=== PATIENT | female | born 1990 | race Two or more races ===

== ENCOUNTER 2017-08-20 07:05 | Outpatient (CLI) | payer OTHER ==
[~2017-08-20] VITALS: Ht 162.6 cm; Wt 96.6 kg
[2017-08-20] MEDS ORDERED: PREN-127 PO (07:13)
--- NOTE | 2017-08-20 07:19 | ER Report ---
History and Physical Time Seen By MD: 07:14 Hx. of Stated Complaint: PT PRESENTS WITH R FLANK PAIN ON . IT WENT AWAY AND RETURNED TODAY, NOT RELIEVED BY TYLENOL. PT IS 31 WEEKS HPI/ROS CHIEF COMPLAINT: Right-sided back and flank pain HISTORY OF PRESENT ILLNESS: Patient is a 26-year-old female who is a at 31 weeks gestation. She states she's been having right-sided flank pain since Monday. The pain is worse with movement. There is some associated nausea. She denies any dysuria. She denies any vaginal bleeding or leakage of fluid. She denies any lower pelvic or abdominal cramping. She does report that she is feeling the baby move normally. Patient states that the onset of the pain she did take Tylenol with relief of her symptoms however over the course of the last 24 hours the pain seems to be worse with movement and does not respond to Tylenol. For this reason she comes to the emergency department for further evaluation. Patient denies any prior history of kidney stone or pyelonephritis. REVIEW OF SYSTEMS: Respiratory: No cough, no dyspnea. Cardiovascular: No chest pain, no palpitations. Gastrointestinal: No vomiting, no abdominal pain. Right-sided flank pain, nausea Musculoskeletal: Right-sided flank pain Allergies: Coded Allergies: No Known Drug Allergies (Unverified , 08/20/17) Home Meds Active Scripts Oxycodone Hcl/Acetaminophen (PERCOCET 5-325 MG TABLET) 1 Each Tablet, 1-2 EACH PO Q6H for PAIN, #20 TAB 0 Refills Prov:MELONIE GRIMALDO MD 08/20/17 Reported Medications Acetaminophen (TYLENOL) 325 Mg Tablet, 325 MG PO, TAB 08/20/17 Vits W-Ca,Fe,Fa(<1MG) ( VITAMINS) 1 Each Tablet, 1 EACH PO DAILY, TAB 08/20/17 Past Medical/Surgical History 31 weeks Constitutional Vital Sign - Last 24 Hours 08/20/17 08/20/17 08/20/17 08/20/17 07:08 07:08 07:15 07:30 Temp 98.3 Pulse 123 Resp 20 B/P (MAP) 123/80 (94) 123/80 110/76 (87) 121/79 (93) Pulse Ox 91 O2 Delivery Room Air 08/20/17 07:35 Pulse Ox 93 Physical Exam General Appearance: The patient is alert, has no immediate need for airway protection and no current signs of toxicity. Eyes: Pupils equal and round no injection. Respiratory: Chest is non tender, lungs are clear to auscultation. Cardiac: regular rate and rhythm Gastrointestinal: Gravid, nontender abdomen. Musculoskeletal: Neck: Neck is supple and non tender. Extremities have full range of motion and are non tender. Skin: No rashes or lesions. Medical Decision Making Data Points Result Diagram: 08/20/17 0713 08/20/17 0713 Laboratory Hematology Test 08/20/17 07:13 08/20/17 07:36 Red Blood Count 4.17 M/uL (4.17-5.56) Mean Corpuscular Volume 81.6 fL (80.0-96.0) Mean Corpuscular Hemoglobin 28.2 pg (26.0-33.0) Mean Corpuscular Hemoglobin Concent 34.6 g/dL (32.0-36.0) Red Cell Distribution Width 14.1 % (11.5-14.5) Mean Platelet Volume 10.4 fL (7.2-11.1) Neutrophils (%) (Auto) 78.4 % (39.4-72.5) Lymphocytes (%) (Auto) 13.3 % (17.6-49.6) Monocytes (%) (Auto) 7.4 % (4.1-12.4) Eosinophils (%) (Auto) 0.4 % (0.4-6.7) Basophils (%) (Auto) 0.5 % (0.3-1.4) Nucleated RBC Relative Count (auto) 0.0 /100WBC Neutrophils # (Auto) 8.4 K/uL (2.0-7.4) Lymphocytes # (Auto) 1.4 K/uL (1.3-3.6) Monocytes # (Auto) 0.8 K/uL (0.3-1.0) Eosinophils # (Auto) 0.0 K/uL (0.0-0.5) Basophils # (Auto) 0.1 K/uL (0.0-0.1) Nucleated RBC Absolute Count (auto) 0.00 K/uL Sodium Level 136 mmol/L (137-145) Potassium Level 3.9 mmol/L (3.5-5.0) Chloride Level 104 mmol/L (98-107) Carbon Dioxide Level 20 mmol/L (22-31) Blood Urea Nitrogen 4 mg/dl (7-18) Creatinine 0.60 mg/dl (0.52-1.04) Glomerular Filtration Rate Calc > 60.0 Random Glucose 98 mg/dl (75-110) Calcium Level 9.4 mg/dl (8.4-10.2) Total Bilirubin 0.7 mg/dl (0.2-1.3) Aspartate Amino Transf (AST/SGOT) 24 U/L (0-35) Alanine Aminotransferase (ALT/SGPT) 20 U/L (0-56) Alkaline Phosphatase 120 U/L (0-126) Total Protein 7.2 gm/dl (6.3-8.2) Albumin 3.6 g/dl (3.5-5.0) Urine Color Yellow Urine Clarity Slightly-cloudy Urine pH 8.0 pH (4.8-9.5) Urine Specific [place] 1.012 Urine Protein Negative mg/dL (NEGATIVE) Urine Glucose (UA) Negative mg/dL (NEGATIVE) Urine Ketones Negative mg/dL (NEGATIVE) Urine Blood Moderate (NEGATIVE) Urine Nitrite Negative (NEGATIVE) Urine Bilirubin Negative (NEGATIVE) Urine Urobilinogen 2.0 mg/dL (0.2-1.9) Urine Leukocyte Esterase Small (NEGATIVE) Urine RBC 10 /HPF (0-2/HPF) Urine WBC 128 /HPF (0-5/HPF) Urine Squamous Epithelial Cells Many /LPF (</=FEW) Urine Transitional Epithelial Cells Moderate /LPF (NONE-FEW) Urine Bacteria Moderate /HPF (NONE-FEW) Urine White Blood Cell Casts Few /LPF (NONE) Urine Mucus None /HPF (NONE-FEW) Urine Opiates Screen Negative Urine Barbiturates Screen Negative Ur Tricyclic Antidepressants Screen Negative Urine Phencyclidine Screen Negative Urine Amphetamines Screen Negative Urine Benzodiazepines Screen Negative Urine Cocaine Screen Negative Urine Cannabinoids Screen Negative Chemistry Test 08/20/17 07:13 08/20/17 07:36 White Blood Count 10.8 k/uL (4.5-11.0) Red Blood Count 4.17 M/uL (4.17-5.56) Hemoglobin 11.8 g/dL (12.0-16.0) Hematocrit 34.0 % (34.0-47.0) Mean Corpuscular Volume 81.6 fL (80.0-96.0) Mean Corpuscular Hemoglobin 28.2 pg (26.0-33.0) Mean Corpuscular Hemoglobin Concent 34.6 g/dL (32.0-36.0) Red Cell Distribution Width 14.1 % (11.5-14.5) Platelet Count 168 K/uL (150-450) Mean Platelet Volume 10.4 fL (7.2-11.1) Neutrophils (%) (Auto) 78.4 % (39.4-72.5) Lymphocytes (%) (Auto) 13.3 % (17.6-49.6) Monocytes (%) (Auto) 7.4 % (4.1-12.4) Eosinophils (%) (Auto) 0.4 % (0.4-6.7) Basophils (%) (Auto) 0.5 % (0.3-1.4) Nucleated RBC Relative Count (auto) 0.0 /100WBC Neutrophils # (Auto) 8.4 K/uL (2.0-7.4) Lymphocytes # (Auto) 1.4 K/uL (1.3-3.6) Monocytes # (Auto) 0.8 K/uL (0.3-1.0) Eosinophils # (Auto) 0.0 K/uL (0.0-0.5) Basophils # (Auto) 0.1 K/uL (0.0-0.1) Nucleated RBC Absolute Count (auto) 0.00 K/uL Glomerular Filtration Rate Calc > 60.0 Calcium Level 9.4 mg/dl (8.4-10.2) Total Bilirubin 0.7 mg/dl (0.2-1.3) Aspartate Amino Transf (AST/SGOT) 24 U/L (0-35) Alanine Aminotransferase (ALT/SGPT) 20 U/L (0-56) Alkaline Phosphatase 120 U/L (0-126) Total Protein 7.2 gm/dl (6.3-8.2) Albumin 3.6 g/dl (3.5-5.0) Urine Color Yellow Urine Clarity Slightly-cloudy Urine pH 8.0 pH (4.8-9.5) Urine Specific [place] 1.012 Urine Protein Negative mg/dL (NEGATIVE) Urine Glucose (UA) Negative mg/dL (NEGATIVE) Urine Ketones Negative mg/dL (NEGATIVE) Urine Blood Moderate (NEGATIVE) Urine Nitrite Negative (NEGATIVE) Urine Bilirubin Negative (NEGATIVE) Urine Urobilinogen 2.0 mg/dL (0.2-1.9) Urine Leukocyte Esterase Small (NEGATIVE) Urine RBC 10 /HPF (0-2/HPF) Urine WBC 128 /HPF (0-5/HPF) Urine Squamous Epithelial Cells Many /LPF (</=FEW) Urine Transitional Epithelial Cells Moderate /LPF (NONE-FEW) Urine Bacteria Moderate /HPF (NONE-FEW) Urine White Blood Cell Casts Few /LPF (NONE) Urine Mucus None /HPF (NONE-FEW) Urine Opiates Screen Negative Urine Barbiturates Screen Negative Ur Tricyclic Antidepressants Screen Negative Urine Phencyclidine Screen Negative Urine Amphetamines Screen Negative Urine Benzodiazepines Screen Negative Urine Cocaine Screen Negative Urine Cannabinoids Screen Negative Toxicology Test 08/20/17 07:36 Urine Opiates Screen Negative Urine Barbiturates Screen Negative Ur Tricyclic Antidepressants Screen Negative Urine Phencyclidine Screen Negative Urine Amphetamines Screen Negative Urine Benzodiazepines Screen Negative Urine Cocaine Screen Negative Urine Cannabinoids Screen Negative Urinalysis Test 08/20/17 07:36 Urine Color Yellow Urine Clarity Slightly-cloudy Urine pH 8.0 pH (4.8-9.5) Urine Specific [place] 1.012 Urine Protein Negative mg/dL (NEGATIVE) Urine Glucose (UA) Negative mg/dL (NEGATIVE) Urine Ketones Negative mg/dL (NEGATIVE) Urine Blood Moderate (NEGATIVE) Urine Nitrite Negative (NEGATIVE) Urine Bilirubin Negative (NEGATIVE) Urine Urobilinogen 2.0 mg/dL (0.2-1.9) Urine Leukocyte Esterase Small (NEGATIVE) Urine RBC 10 /HPF (0-2/HPF) Urine WBC 128 /HPF (0-5/HPF) Urine Squamous Epithelial Cells Many /LPF (</=FEW) Urine Transitional Epithelial Cells Moderate /LPF (NONE-FEW) Urine Bacteria Moderate /HPF (NONE-FEW) Urine White Blood Cell Casts Few /LPF (NONE) Urine Mucus None /HPF (NONE-FEW) ED Course/Re-evaluation ED Course 08/20/2017 7:36:46 am a bedside ultrasound was performed which did not reveal any significant hydronephrosis by my exam. Plan at this time will be to place an IV we will give 4 mg of IV morphine for pain 4 mg of IV Zofran for nausea. We 'll check CBC, comprehensive metabolic panel urinalysis and urine culture. Because the patient is 31 weeks we will sent to the OB floor for monitoring, if patient is cleared by OB and needs further evaluation and treatment for her right-sided flank pain we can see her back in the emergency department. Decision to Disposition Date: August 20, 2017 Decision to Disposition Time: 07:38 Depart Departure Latest Vital Signs Vital Signs Date Time Temp Pulse Resp B/P (MAP) Pulse Ox O2 Delivery O2 Flow Rate FiO2 08/20/17 07:35 93 08/20/17 07:30 121/79 (93) 08/20/17 07:08 98.3 123 20 Room Air Impression: Primary Impression: Right flank pain Condition: Improved Disposition: HOME OR SELF-CARE (to OB floor for monitoring) New Scripts Oxycodone Hcl/Acetaminophen (PERCOCET 5-325 MG TABLET) 1 Each Tablet 1-2 EACH PO Q6H for PAIN, #20 TAB 0 Refills Prov: MELONIE GRIMALDO MD 08/20/17 Departure Forms: ER Transition Record, Medications Reconciliation, Patient Portal Information Patient Instructions: Flank Pain (ED) MELONIE GRIMALDO MD August 20, 2017 07:19
[2017-08-20] MEDS ORDERED: MORPHINE 4 MG/ML SDV IVP ONE (07:20)
[2017-08-20] MEDS ORDERED: ONDANSETRON 4 MG/2 ML VIAL IVP ONE (07:20)
[2017-08-20 07:31] LABS: PLATELET COUNT, AUTOMATED 168 K/uL (150-450)
[2017-08-20] MEDS ORDERED: ACET-1966 PO (08:00)
[2017-08-20 08:30] VITALS: BP 124/58; Ht 162.6 cm; Wt 96.6 kg
--- NOTE | 2017-08-20 08:43 | History & Physical ---
History of Present Illness EDC per LMP: Oct 22, 2017 Estimated Gestational Age: 30.6 Chief Complaint Right flank pain History of Present Illness 26yo at 30w6d presented to ED for right sided flank pain. She reports this started 5 days ago, but has significantly worsened last night. She reports it is a constant pain in the right sided flank that comes in waves of severity. She denies nausea, fevers or chills. However, she did feel "hot" last night. She denies vaginal bleeding or blood in the urine. No dysuria. + FM. No preeclampsia symptoms. PNC by W. PNR not available. History Obstetrical History: Hx 2 SVDs Hx 1 SAB Hx 2 EABs Past Medical History: See ED notes Allergies: Coded Allergies: No Known Drug Allergies (Unverified , 08/20/17) Med Rec Home Meds Reported Medications Acetaminophen (TYLENOL) 325 Mg Tablet, 325 MG PO, TAB 08/20/17 Vits W-Ca,Fe,Fa(<1MG) ( VITAMINS) 1 Each Tablet, 1 EACH PO DAILY, TAB 08/20/17 Review of Systems Constitutional: No Fever, No Chills Neurological: No Dizziness Cardiovascular: No Chest Pain Respiratory: No Shortness of Breath, No Cough Gastrointestinal: No Nausea, No Vomiting, Abdominal Pain Genitourinary: No Dysuria Musculoskeletal: No Pain Psychiatric: No Depression, No Anxiety Exam General Exam Vital Signs Vital Signs Date Time Temp Pulse Resp B/P (MAP) Pulse Ox O2 Delivery O2 Flow Rate FiO2 08/20/17 07:35 93 08/20/17 07:30 121/79 (93) 08/20/17 07:08 98.3 123 20 Room Air General Apperance: Alert/Awake/No Acute Distress Neuro: No Gross deficits Eyes: Normal Extraocular Movement & Vison Cardiovascular: Regular Rate and Rhythm Respiratory: Clear to Auscultation Abdomen: Gravid - Non-Tender : CVA Tenderness (Right sided along entire flank) Extremities: No Cyanosis,Clubbing or Edema Integumentary: Skin Intact without Lesions or Rash Psychological: Alert & Oriented X3, Appropriate Mood & Affect Fetus Feeling Movement?: Yes FHT Category: I Medical Decision Making Data Points Result Diagram: 08/20/17 0713 08/20/17 0713 Pre-Admit Course Medical Record Review: Yes VTE Prophylasis: Adult Deep Vein Thrombosis/Pulmonary: No Pharmacological Contraindicati: Pt at Low Risk for VTE Mechanical Contraindications: Pt at Low Risk for VTE Assessment and Plan Problems: (1) Right flank pain Status: Acute Assessment & Plan: 26yo at 30w6d presents with right sided flank pain. Her exam and symptoms are consistent with ureteral stones. There is no indication of pyelonephritis a this time. Will push IVF and adjust oral pain medications. Await renal ultrasound results. Will likely discharge once pain is tolerable with medication and follow up next week at [facility]. (2) 30 weeks gestation of MARLA ARCOS MD August 20, 2017 08:43
[2017-08-20] MEDS ORDERED: NS(*) 0.9% 1000 ML BAG 1,000 ML IV ONE ×2 (08:45)
[2017-08-20] MEDS ORDERED: OXYC-865 PO (12:25)
[2017-08-20] MEDS ORDERED: oxyCODONE/ACETAMIN 5/325MG TH 2 TAB/BOTTLE PO ONE (12:35)
== END 2017-08-20 12:41 | disposition home or self-care (01) ==
LOC: ER 07:21 → OB 07:55 → L&D 07:55 → OB 07:55 → UNDOADMOB 07:55 → L&D 12:41 → UNDODISOB 12:41 → EDSTATUS 15:04
PROVIDERS: ATTEND Emergency Medicine
DX: O26.893 Other specified pregnancy related conditions, third trimester (principal); Z3A.30 30 weeks gestation of pregnancy; M54.9 Dorsalgia, unspecified
CPT/HCPCS: 80305; 81001; 85025; 87088; 87186; 99213; 99284; J2270; J2405; J7030; 82040; 82247; 82310; 82374; 82435; 82565; 82947; 84075; 84132; 84155; 84295; 84450; 84460; 84520; G0378

== ENCOUNTER → 2017-08-23 | Outpatient (REF) | payer OTHER ==
[2017-08-20 08:30] VITALS: BMI 36.6
[~2017-08-23] MED LIST: ACET-1966 PO; OXYC-865 PO; PREN-127 PO
== END ==
LOC: ZZSENDIN 18:25
PROVIDERS: ATTEND Urology
DX: N39.0 Urinary tract infection, site not specified (principal)
CPT/HCPCS: 81001; 87088

== ENCOUNTER → 2017-08-28 | Outpatient (CLI) | payer OTHER ==
[2017-08-20 08:30] VITALS: BMI 36.6
--- NOTE | 2017-08-28 14:49 | RADIOLOGY IMAGING REPORT ---
FACILITY: [facility] PATIENT NAME: Betzy Joseph : 1990 MR: [id number] V: [id number] EXAM DATE: ORDERING PHYSICIAN: SIERRA JUÁREZ TECHNOLOGIST: Location: [facility] [place] Patient: Betzy Joseph : 1990 Visit/Account:[id number] Date of Sevice: 08/28/2017 KIDNEYS ultrasound EXAMINATION: Renal ultrasound. History: Right flank pain, UTIs, 32 weeks COMPARISON STUDIES: FINDINGS: Kidneys: Right kidney- 11.9 x 5.2 x 6.6 cm Left kidney- 11.5 x 5 x 6.4 cm cm Uniform and symmetric blood flow in each kidney by Doppler ultrasound. Hydronephrosis: Mild bilateral hydronephrosis Bladder: Prevoid volume 68.36 mL. Postvoid residual 6 mL. Bilateral ureteral jets are present. Abdominal aorta and IVC: Aorta and IVC are patent by Doppler ultrasound. Incidentally noted is a fetus in cephalic presentation which is incompletely imaged IMPRESSION: Mild bilateral hydronephrosis Report Dictated By: Radha Mcconnell MD at 08/28/2017 2:42 PM Report E-Signed By: Rahda Mcconnell MD at 08/28/2017 2:45 PM WSN:CAITIE
== END ==
LOC: US 06:56
PROVIDERS: ATTEND Urology
DX: N13.30 Unspecified hydronephrosis (principal); Z3A.32 32 weeks gestation of pregnancy
CPT/HCPCS: 76705

== ENCOUNTER 2017-09-21 22:25 | Observation (INO) | payer OTHER, MEDICAID ==
[~2017-09-21] VITALS: Ht 162.6 cm; Wt 98.9 kg
[2017-09-21] MEDS ORDERED: LR(*) 1000 ML BAG 1,000 ML IV PRN (22:30)
[2017-09-21 23:16] VITALS: BP 118/71; Ht 162.6 cm; Wt 98.9 kg
== END 2017-09-21 23:09 | disposition home or self-care (01) ==
LOC: OB 22:25
PROVIDERS: ADMIT Obstetrics & Gynecology; ATTEND Obstetrics & Gynecology
DX: O36.8130 Decreased fetal movements, third trimester, not applicable or unspecified (principal); Z3A.35 35 weeks gestation of pregnancy
CPT/HCPCS: 59025; G0378; G0379

== ENCOUNTER 2017-10-01 20:28 | Outpatient (CLI) | payer MEDICAID ==
[2017-09-21 23:16] VITALS: BMI 37.4
[2017-10-01] MEDS ORDERED: LR(*) 1000 ML BAG 1,000 ML IV PRN (20:30)
[2017-10-01] MEDS ORDERED: ACETAMINOPHEN 500 MG TAB PO ONE ×2 (21:30→21:55)
[2017-10-01 21:32] LABS: PLATELET COUNT, AUTOMATED 162 K/uL (150-450)
--- NOTE | 2017-10-01 22:04 | History & Physical ---
History of Present Illness Chief Complaint Left abdominal pain History of Present Illness 27yo at 37w0d presents to L&D for left sided abdominal pain. She states this started abruptly at 1900 tonight. It is a 7 out of 10 on the scale. She reports it is a sharp and achy sensation that feels like she fell on her stomach , but she did not. She reports it is on the entire left side and cannot further define if it is in the lower/upper/back/front. This appears to be very ill-defined. She has some discomfort with laying still, but the pain worsens when she moves. She was seen for right flank pain in the ED on 08/20/17 and describes this as a completely different pain. She has history of UTI, but no urinary symptoms, fevers/chills. No nausea/vomiting. She feels some contractions but not strong. She has bad back pain in and says she usually has Percocet at home. However, she reports she took her last Percocet 4 days ago for this pain. She still has that pain today, but it is generally the same as it usually is. She reports FM. No vaginal bleeding. No loss of fluid. No preeclampsia symptoms. She does have severe constipation in , but states this does not feel like bowel pains to her. History Patient's Blood Type: A Positive Rubella Status: Immune Group B Strep Screen: Negative Allergies: Coded Allergies: No Known Drug Allergies (Unverified , 08/20/17) Social History: Denies current smoking or alcohol. Denies drug use. Med Rec Home Meds Active Scripts Oxycodone Hcl/Acetaminophen (PERCOCET 5-325 MG TABLET) 1 Each Tablet, 1-2 EACH PO Q6H for PAIN, #20 TAB 0 Refills Prov:MELONIE GRIMALDO MD 08/20/17 Reported Medications Vits W-Ca,Fe,Fa(<1MG) ( VITAMINS) 1 Each Tablet, 1 EACH PO DAILY, TAB 08/20/17 Discontinued Reported Medications Acetaminophen (TYLENOL) 325 Mg Tablet, 325 MG PO, TAB 08/20/17 Review of Systems Constitutional: No Fever, No Chills Eyes: No Vision Change Cardiovascular: No Chest Pain Respiratory: No Shortness of Breath, No Cough, No Wheezing Gastrointestinal: No Nausea, No Vomiting, No Diarrhea, Constipation, Abdominal Pain Genitourinary: No Dysuria Exam General Exam Vital Signs VS reviewed: Afebrile, normotensive General Apperance: Alert/Awake/No Acute Distress Neuro: No Gross deficits Eyes: Normal Extraocular Movement & Vison Cardiovascular: Regular Rate and Rhythm Respiratory: No Respiratory Distress, Clear to Auscultation Abdomen: Gravid - Tender (No rebound or guarding; describes tenderness everywhere that I palpate, but does not appear in pain) Extremities: No Cyanosis,Clubbing or Edema, No Tender Calves, No Clonus Integumentary: Skin Intact without Lesions or Rash Psychological: Alert & Oriented X3, Appropriate Mood & Affect Cervical Dialation: 1 Cervical Effacement (%): 50 Cervical Consistency: Moderate Cervical Position: Mid Station: -2 Uterine Contraction Strength: Mild Fetus FHT Category: I Medical Decision Making Data Points Result Diagram: 10/01/172124 Assessment and Plan Problems: (1) Abdominal pain affecting , antepartum Assessment & Plan: 27yo at 37w0d presents with a poorly defined left sided abdominal pain. Her exam is not concerning for infection or uterine issues. Her history is difficult to define. Her CBC and UA are normal. CMP is also normal. Will give Tylenol and encourage hydration. I suspect she may have some constipation causing bowel type pain, however, she is not interested in any bowel regimen therapy. Will discharge to home with labor and infection precautions. (2) 37 weeks gestation of MARLA ARCOS MD Oct 01, 2017 22:04
== END 2017-10-01 22:48 | disposition home or self-care (01) ==
LOC: OB 20:28 → L&D 20:28 → UNDOADMIN 20:28 → OB 20:28 → UNDODISIN 22:48 → L&D 22:48 → EDSTATUS 10-02 11:50
PROVIDERS: ATTEND Obstetrics & Gynecology
DX: O26.893 Other specified pregnancy related conditions, third trimester (principal); Z3A.37 37 weeks gestation of pregnancy
CPT/HCPCS: 36415; 81001; 85025; 86850; 86900; 86901; G0463; 82040; 82247; 82310; 82374; 82435; 82565; 82947; 84075; 84132; 84155; 84295; 84450; 84460; 84520; 99213

== ENCOUNTER 2017-10-17 04:53 | Inpatient (IN) | payer MEDICAID ==
[~2017-10-17] VITALS: Ht 162.6 cm; Wt 98.4 kg
[2017-10-17] MEDS ORDERED: OXYTOCIN 30 UNIT/D5LR 500 ML 500 ML IV PRN ×2 (04:57→09:18)
[2017-10-17] MEDS ORDERED: FAMOTIDINE(*) 20MG/50ML PREMIX 50 ML IVPB PRN (04:57)
[2017-10-17] MEDS ORDERED: cefOXitin/DEX(*) 2GM/50ML PREM 50 ML IVPB PRN (05:00)
[2017-10-17] MEDS ORDERED: TERBUTALINE SULF 1 MG/ML VIAL SUBQ PRN (05:00)
[2017-10-17] MEDS ORDERED: fentaNYL CITR 100 MCG/2 ML AMP IVP PRN (05:00)
[2017-10-17] MEDS ORDERED: METOCLOPRAMIDE 10 MG/2 ML SDV IVP PRN (05:00)
[2017-10-17] MEDS ORDERED: MISOPROSTOL 25 MCG CAP PV PRN (05:00)
[2017-10-17] MEDS ORDERED: ACETAMINOPHEN 500 MG TAB PO PRN (05:00)
[2017-10-17] MEDS ORDERED: LIDOCAINE 1% LOCAL 300 MG/30ML INJ PRN (05:00)
[2017-10-17] MEDS ORDERED: ONDANSETRON 4 MG/2 ML VIAL IVP PRN ×2 (05:00→09:20)
[2017-10-17] MEDS ORDERED: LIDOCAINE/SOD BICARB 8.4% SYR SC PRN (05:00)
[2017-10-17 05:30] VITALS: BP 114/68; Ht 162.6 cm; Wt 98.4 kg
[2017-10-17 06:13] LABS: PLATELET COUNT, AUTOMATED 165 K/uL (150-450)
--- NOTE | 2017-10-17 09:08 | History & Physical ---
History of Present Illness Age of Patient: 26 : 6 Para or TPAL: 2 EDC per U/S: Oct 22, 2017 Estimated Gestational Age: 39.2 Chief Complaint IOL History of Present Illness Presents for scheduled elective IOL. has been uncomplicated. Two previous SVDs in [place]. Past Medical, Surgical, Family and Obstetric Histories reviewed. Please see ACOG chart. History Allergies: Coded Allergies: No Known Drug Allergies (Unverified , 08/20/17) Social History: Denies current smoking or alcohol. Denies drug use. Med Rec Home Meds Reported Medications Vits W-Ca,Fe,Fa(<1MG) ( VITAMINS) 1 Each Tablet, 1 EACH PO DAILY, TAB 08/20/17 Discontinued Scripts Oxycodone Hcl/Acetaminophen (PERCOCET 5-325 MG TABLET) 1 Each Tablet, 1-2 EACH PO Q6H for PAIN, #20 TAB 0 Refills Prov:MELONIE GRIMALDO MD 08/20/17 Review of Systems All Systems Reviewed/Normal: Yes, Except as Noted Exam General Exam Vital Signs Vital Signs Date Time Temp Pulse Resp B/P (MAP) Pulse Ox O2 Delivery O2 Flow Rate FiO2 10/17/17 05:30 98.8 87 18 114/68 (83) 94 Room Air General Apperance: Alert/Awake/No Acute Distress Neuro: No Gross deficits Eyes: Normal Extraocular Movement & Vison Cardiovascular: Regular Rate and Rhythm Respiratory: No Respiratory Distress, Clear to Auscultation Abdomen: Soft, Non-Tender, Non-Distended, Gravid - Non-Tender Integumentary: Skin Intact without Lesions or Rash Psychological: Alert & Oriented X3, Appropriate Mood & Affect Vaginal Discharge/Fluid?: Bloody Show Cervical Dialation: 3 Cervical Effacement (%): 80 Cervical Consistency: Soft Cervical Position: Anterior Station: -2 Presentation: Vertex Fetus Heart Tone Variabilty: Moderate FHT Accelerations: 15X15 FHT Category: I Medical Decision Making Data Points Result Diagram: 10/17/17 0530 VTE Prophylasis: Adult Deep Vein Thrombosis/Pulmonary: No Pharmacological Contraindicati: Pt at Low Risk for VTE Mechanical Contraindications: Pt at Low Risk for VTE Assessment and Plan [employer] Plan: Routine Labor/Induct Care Problems: (1) 39 weeks gestation of Assessment & Plan: Already received a single dose of Cytotec and feeling contractions. AROM attempted but unable to get a gush back. Will await for more labor and try again. Planning epidural. SINTIA DESIR MD Oct 17, 2017 09:08
[2017-10-17] MEDS: LR(*) 1000 ML BAG 1,000 ML IV PRN ×2 (09:11→10:00)
[2017-10-17] MEDS ORDERED: BUPIVACAINE 0.25% MPF INJ EPI PRN (09:20)
[2017-10-17] MEDS ORDERED: LIDO/EPI 2% MPF 1:200,000 20ML EPI PRN (09:20)
[2017-10-17] MEDS ORDERED: fentaNYL CITR 100 MCG/2 ML AMP IT PRN (09:20)
[2017-10-17] MEDS ORDERED: LR(*) 1000 ML BAG 1,000 ML IV PRN (09:20)
[2017-10-17] MEDS ORDERED: NALBUPHINE HCL 10 MG/ML AMP IVP PRN (09:20)
[2017-10-17] MEDS ORDERED: LIDOCAINE/PF 2% 200MG/10ML AMP 200 MG/10 ML AMPUL EPI PRN (09:20)
[2017-10-17] MEDS ORDERED: FENTANYL/ROPIVACAINE 100 ML BAG EPI PRN (09:20)
[2017-10-17] MEDS ORDERED: BUPIVACAINE 0.5% INJ 30ML VIAL EPI PRN (09:20)
[2017-10-17] MEDS ORDERED: EPIDURAL KEYS XX PRN (09:30)
[2017-10-17] MEDS ORDERED: ePHEDrine 25 MG/5 ML DISP.SYR IVP PRN (09:45)
--- NOTE | 2017-10-17 11:03 | Anesthesia OB Pre-Anes Eval ---
History of Present Illness Anesthesia Start Time: 10:08 OB Anesthesia Diagnosis: induction - elective EDC: Oct 22, 2017 : 6 Para: 2 Pain Ratin Heart Tones: 141 Result Diagram: 10/17/17 0530 Height (Inches): 64.00 Weight (Pounds): 217 BMI Calculated: 37.24 Past Medical History Medical History: no pertinent history Surgical History: noncontributory (D & C) Previous Anesthesia: epidural Attended Childbirth Classes?: No Hx Anesthesia Reactions: No Hx Family Anesthesia Reaction: No Past Complications: obesity Home Meds Reported Medications Vits W-Ca,Fe,Fa(<1MG) ( VITAMINS) 1 Each Tablet, 1 EACH PO DAILY, TAB 08/20/17 Discontinued Scripts Oxycodone Hcl/Acetaminophen (PERCOCET 5-325 MG TABLET) 1 Each Tablet, 1-2 EACH PO Q6H for PAIN, #20 TAB 0 Refills Prov:MELONIE GRIMALDO MD 08/20/17 Allergies: Coded Allergies: No Known Drug Allergies (Unverified , 08/20/17) Anesthesia OB ROS Airway Class: ll GI ROS: clear liquids Last Solids Date: Oct 16, 2017 Last Solids Time: 19:00 ASA Classification: 2 Assessment and Plan Anesthesia Plan: JOI PANDYA CRNA Oct 17, 2017 11:03
--- NOTE | 2017-10-17 11:09 | Procedure Note ---
Anesthetic Placement Note Anesthesia Plan: CSE Permit for Anesthesia Signed: Yes Anesthesia Technique: Patient Sitting Anesthesia Prep: Chlorhexidine Interspace: L 4-5 Local Anesthetic: 1% Lidocaine, 25 Gauge Needle Amount Local - cc's: 3 Anesthesia Needle: 17g Touhsanty/Schliff Anesthesia Attempts: 1 Loss of Resistance: Normal Saline Depth of AMARI (cm): 8 Epidural Needle Placement: No CSF, No Blood, No Parasthesia Intrathecal Needle: 27 Gauge Pencan Cerebral Spinal Fluid: No (no csf return. no medication placed. ) Catheter Insertion (cm): 11 Catheter Type: Clay - Spring Wound Epidural Dressing: Tegaderm, Tape, Adhesive [place] Anesthesia Tray: Lot Number ([id number]), Expiration Date (2018-10-24), Reference Number ([id number]) Comment: Attempted X 1 intrathecal. no CSF return. Epidural catheter placed X 1 attempt with no complications. JOI SMYTH CRNA Oct 17, 2017 11:09
--- NOTE | 2017-10-17 11:14 | Anesthesia Progress Note ---
Progress/Maintenance Anesthesia Note Time: 10:33 Pain Intensity: 5 Pump: Off Motor Level: Bending Knees-Bilateral Position: Left, Tilt Drug Bolus: 0.25% Marcaine (3 ml with 2 ml PF NS), Fentanyl 2mcg/ml (50 mcg) JOI SMYTH CRNA Oct 17, 2017 11:14
--- NOTE | 2017-10-17 11:15 | Anesthesia Progress Note ---
Progress/Maintenance Anesthesia Note Time: 10:43 Pain Intensity: 4 Pump: On Pump Rate (ML/HR): 10 Sensory Level: t10 Motor Level: Bending Knees-Bilateral Position: Left, Tilt JOI SMYTH CRNA Oct 17, 2017 11:15
--- NOTE | 2017-10-17 13:53 | Anesthesia Progress Note ---
Progress/Maintenance Pain Intensity: 0 Pump: On Pump Rate (ML/HR): 8 (rate turned from 10ml/hr to 8ml/hr) Sensory Level: t3 Motor Level: Bending Knees-Bilateral Position: Right, Tilt JOI SMYTH ELECTRICAL TRANSMISSION ENGINEER Oct 17, 2017 13:53
--- NOTE | 2017-10-17 14:43 | Anesthesia Progress Note ---
Progress/Maintenance Anesthesia Note Time: 14:42 Pain Intensity: 0 Pump: On Pump Rate (ML/HR): 6 (rate from 8 to 6ml/hr) Sensory Level: t10 Motor Level: Bending Knees-Bilateral Dilatation: 3 Position: Right, Tilt JOI SMYTH CRNA Oct 17, 2017 14:43
[2017-10-17] MEDS ORDERED: ACETAMINOPHEN 325 MG TAB PO PRN (16:05)
[2017-10-17] MEDS ORDERED: BENZOCAINE 20% 60 ML BTL TP PRN (16:05)
[2017-10-17] MEDS ORDERED: GLYCERIN/WITCH HAZEL LEAF 1 PK TP PRN (16:05)
[2017-10-17] MEDS ORDERED: HYDROCORTISONE 2.5% CR 30GM TB PR PRN (16:05)
[2017-10-17] MEDS ORDERED: INFLUENZA VIRUS VAC 0.5 ML SYR IM ONLY ONE (16:05)
[2017-10-17] MEDS ORDERED: LANOLIN OINT 7 GM TUBE TP PRN (16:05)
--- NOTE | 2017-10-17 16:10 | OB Delivery Note ---
Delivery Note Vaginal Delivery Type: Spont. Vaginal Delivery Delivery Date: Oct 17, 2017 Delivery Time: 15:55 Estimated Gestational Age(wks): 39.2 Delivery Anesthesia: Epidural Sex: Male Weight (gms): 3240 Apgars: 1 Minute (8), 5 Minute Estimated Blood Loss: 300 Notes: Called for complete and feeling pressure and urge to push. Upon arrival complete, +3 and LOP. Baby rotated to GINGER with a push and over next 2 contractions, delivered over intact perineum. Shoulders delivered spontaneously. Placenta delivered spontaneous and intact. No complications. Historic Sites Supervisor in Attendence: No Copies to: SINTIA DESIR MD, TRAVIS MD Oct 17, 2017 16:10
--- NOTE | 2017-10-17 16:13 | Anesthesia Progress Note ---
Progress/Maintenance Anesthesia Note Time: 16:15 Pump: Off (Viable at 1558. ) Assessment and Plan Anesthesia Stop Day: Oct 17, 2017 Anesthesia Stop Time: 16:08 JOI SMYTH CRNA Oct 17, 2017 16:13
[2017-10-17] MEDS: IBUPROFEN 800 MG TAB PO SCH (17:38)
[2017-10-17] MEDS: APAP/HYDROCODONE 325/5 TAB PO PRN ×2 (18:29→22:33)
[2017-10-17 20:15] VITALS: BP 105/66
[2017-10-17] MEDS: DOCUSATE CALCIUM 240 MG CAP PO SCH (21:00)
[2017-10-18] MEDS: IBUPROFEN 800 MG TAB PO SCH ×3 (00:34→16:58)
[2017-10-18] MEDS: APAP/HYDROCODONE 325/5 TAB PO PRN ×6 (02:14→23:24)
[2017-10-18 03:49] VITALS: BP 112/68
--- NOTE | 2017-10-18 07:19 | OB/GYN Progress Note ---
OB Subjective Progress Notes Subjective Pain well controlled and bleeding light. Did not rest much due to baby demands. Voiding well. 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 F/U in office at 6 weeks. SINTIA DESIR MD Oct 18, 2017 07:19
[2017-10-18] MEDS ORDERED: LOR5/325 PO (07:20)
[2017-10-18 08:05] VITALS: BP 120/70
[2017-10-18] MEDS ORDERED: MEASLES,MUMP,RUBELLA VAC 0.5ML SUBQ ONE (09:00)
[2017-10-18] MEDS ORDERED: DIPHTH/TETANUS/ACEL. PERTUSSIS IM ONLY ONE (09:00)
[2017-10-18] MEDS: DOCUSATE CALCIUM 240 MG CAP PO SCH ×2 (09:36→20:29)
[2017-10-18 12:50] VITALS: BP 122/71
[2017-10-18 15:40] VITALS: BP 115/55
[2017-10-18 20:35] VITALS: BP 120/69
[2017-10-18 23:30] VITALS: BP 124/58
[2017-10-19] MEDS: IBUPROFEN 800 MG TAB PO SCH ×3 (00:38→17:09)
[2017-10-19] MEDS: APAP/HYDROCODONE 325/5 TAB PO PRN ×5 (03:09→19:14)
[2017-10-19] MEDS: MAGNESIUM HYDROXIDE* 30ML UDCP PO PRN ×2 (03:17→19:15)
[2017-10-19 07:30] VITALS: BP 113/72
--- NOTE | 2017-10-19 08:52 | OB/GYN Progress Note ---
OB Subjective Progress Notes Subjective Feeling OK, but for lots of uterine cramping, requesting RX for strong pain med for discharge. Mild lochia. Ambulating and voiding well. No perineal pain. Wants to go home today. Baby also doing well. OB Objective Physical Exam Vital Signs Date Time Temp Pulse Resp B/P (MAP) Pulse Ox O2 Delivery O2 Flow Rate FiO2 10/19/17 03:17 18 10/18/17 23:30 98.0 67 124/58 (80) Room Air 67 10/18/17 20:35 94 General Appearance: Alert/Awake/No Acute Distress Cardiovascular: Regular Rate and Rhythm Respiratory: No Respiratory Distress, Clear to Auscultation Abdomen: Bowel Sounds Present, Fundus Firm (at U), Tender (mildly) Extremities: No Cyanosis,Clubbing or Edema, No Tender Calves Integumentary: Skin Intact without Lesions or Rash Psychological: Alert & Oriented X3, Appropriate Mood & Affect Result Diagram: 10/18/17 0639 Assessment and Plan Problems: (1) care and examination immediately after delivery Status: Acute Assessment & Plan: Doing well, ready for discharge. (2) 39 weeks gestation of Status: Resolved ALIN BISWAS MD Oct 19, 2017 08:52
--- NOTE | 2017-10-19 08:54 | OB/GYN Discharge Summary ---
OSCAR MEANS MD 10/18/17 0721: Discharge Summary Reason for Hosp/Final Diag: (1) 39 weeks gestation of Status: Resolved (2) care and examination immediately after delivery Status: Acute Hospital Course & Plan: Home tomorrow if continues well. F/U in office at 6 weeks. Lates Vital Signs Vital Signs Date Time Temp Pulse Resp B/P (MAP) Pulse Ox O2 Delivery O2 Flow Rate FiO2 10/18/17 03:49 97.9 67 16 112/68 (83) 94 10/17/17 20:15 Room Air Weight (Pounds): 217 Result Diagram: 10/18/1739 Condition: Improved Discharge: Home, Self Fdc Meds Active Scripts Hydrocodone Bit/Acetaminophen (HYDROCODON-ACETAMINOPHEN 5-325) 1 Each Tablet, 1- 2 EACH PO Q6H Y for PAIN, #20 TAB 0 Refills Prov:OSCAR MEANS MD 10/18/17 Reported Medications Vits W-Ca,Fe,Fa(<1MG) ( VITAMINS) 1 Each Tablet, 1 EACH PO DAILY, TAB 08/20/17 Discontinued Scripts Oxycodone Hcl/Acetaminophen (PERCOCET 5-325 MG TABLET) 1 Each Tablet, 1-2 EACH PO Q6H for PAIN, #20 TAB 0 Refills Prov:MELONIE GRIMALDO MD 08/20/17 Follow up Referrals: REPLANTER - In 6 Weeks @ [facility] with Oscar Means Md Follow up with: Dr. Means [phone] Follow up in: 6 wks PP or PO Discharge Diet: As Tolerates Discharge Activity: As Tolerates, No Heavy Lifting x 6 wks, No Heavy Lifting > 10lb, Pelvic Rest Copies to: OSCAR MEANS MD, MARK F MD 10/19/17 0882: Discharge Summary Reason for Hosp/Final Diag: (1) care and examination immediately after delivery Status: Acute Hospital Course & Plan: After normal vaginal delivery, the patient had no problems. She was discharged home less than 48 hours after delivery, in good condition. (2) 39 weeks gestation of Status: Resolved Result Diagram: 10/18/1739 Condition: Improved Discharge: Home, Self Fdc Meds Active Scripts Hydrocodone Bit/Acetaminophen (HYDROCODON-ACETAMINOPHEN 5-325) 1 Each Tablet, 1- 2 EACH PO Q6H Y for PAIN, #20 TAB 0 Refills Prov:OSCAR MEANS MD 10/18/17 Reported Medications Vits W-Ca,Fe,Fa(<1MG) ( VITAMINS) 1 Each Tablet, 1 EACH PO DAILY, TAB 08/20/17 Discontinued Scripts Oxycodone Hcl/Acetaminophen (PERCOCET 5-325 MG TABLET) 1 Each Tablet, 1-2 EACH PO Q6H for PAIN, #20 TAB 0 Refills Prov:MELONIE GRIMALDO MD 08/20/17 Follow up Referrals: REPLANTER - In 6 Weeks @ [facility] with Oscar Means Md Follow up with: Dr. Means [phone] Follow up in: 6 wks PP or PO Discharge Diet: As Tolerates Discharge Activity: As Tolerates Copies to: OSCAR MEANS MD, TRAVIS MD Oct 18, 2017 07:21 ALIN BISWAS MD Oct 19, 2017 08:54
[2017-10-19] MEDS: DOCUSATE CALCIUM 240 MG CAP PO SCH ×2 (09:30→19:14)
[2017-10-19] MEDS ORDERED: POLYETHYLENE GLYCOL 17 GM PKT PO ONE (13:00)
[2017-10-19 17:00] VITALS: BP 112/72
== END 2017-10-19 19:25 | disposition home or self-care (01) | DRG 775 ==
LOC: OB 04:53
PROVIDERS: ADMIT Obstetrics & Gynecology; ATTEND Obstetrics & Gynecology
PROC: 10E0XZZ Delivery of Products of Conception, External Approach (ICD-10-PCS; principal; 2017-10-17)
PROC: 3E0P7VZ Introduction of Hormone into Female Reproductive, Via Natural or Artificial Opening (ICD-10-PCS; 2017-10-17)
DX: O80 Encounter for full-term uncomplicated delivery (principal); Z37.0 Single live birth; Z3A.39 39 weeks gestation of pregnancy
CPT/HCPCS: 36415; 85025; 85027; 86850; 86900; 86901; J2590; J3010; J7120; S0020

== ENCOUNTER → 2018-05-01 | Outpatient (CLI) | payer MEDICAID ==
[2017-10-17 05:30] VITALS: BMI 37.2
[~2018-05-01] MED LIST changes: +LOR5/325 PO
[2018-05-01 16:24] LABS: PLATELET COUNT, AUTOMATED 205 K/uL (150-450)
== END ==
LOC: LAB 14:56
PROVIDERS: ATTEND Obstetrics & Gynecology
DX: Z34.92 Encounter for supervision of normal pregnancy, unspecified, second trimester (principal)
CPT/HCPCS: 36415; 85025; 86592; 86703; 86762; 86850; 86900; 86901; 87340; 87491; 87591

== ENCOUNTER → 2018-05-14 | Outpatient (CLI) | payer MEDICAID ==
[2017-10-17 05:30] VITALS: BMI 37.2
--- NOTE | 2018-05-15 08:09 | RADIOLOGY IMAGING REPORT ---
FACILITY: [facility] [place] PATIENT NAME: Betzy Joseph : 1990 MR: [id number] V: [id number] EXAM DATE: ORDERING PHYSICIAN: BALWINDER BULLARD TECHNOLOGIST: Location: [facility] [place] Patient: Betzy Joseph : 1990 Visit/Account:[id number] Date of Sevice: 05/14/2018 [facility] [place] OB ANATOMICAL SURVEY HISTORY: anatomical FINDINGS: Intrauterine gestations: 1 presentation: Variable. Ended in breech heart rate: 138 bpm Amniotic fluid volume: MARISELA 13 cm; Largest amniotic fluid pocket 3.6 cm Placenta: Anterior No placenta previa or retroplacental hemorrhage. Uterus: Gravid, otherwise normal Maternal adnexa: Negative Cervix 4.3 cm. Closed Gestational Parameters: BPD: 4.3 cm; 19 weeks/ 1 days HC: 16.4 cm; 19 weeks/ 1 days AC: 13.7 cm; 19 weeks/ 2 days FL: 3.3 cm; 20 weeks/ 2 days Average ultrasound age (AUA): 19 weeks/ 4 days Estimated weight (EFW): 301 grams +/- 44 grams. 46 percentile based on LMP Anatomic Survey: Intracranial structures, 4-chamber heart, stomach, kidneys, urinary bladder, spine, 3-vessel cord and cord insertion are unremarkable. Two upper and two lower extremities visualized. IMPRESSION: 1. IUP of 19 weeks 4 days. JERONIMO of 10/04/2018. This correlates exactly with the LMP JERONIMO of 10/04/2018 Report Dictated By: Andrea Serrano MD at 05/15/2018 7:52 AM Report E-Signed By: Andrea Serrano MD at 05/15/2018 8:04 AM WSN:[id number]
== END ==
LOC: RAD 08:03
PROVIDERS: ATTEND Student in an Organized Health Care Education/Training Program
DX: Z02.9 Encounter for administrative examinations, unspecified (principal)

== ENCOUNTER → 2018-07-16 | Outpatient (CLI) | payer MEDICAID ==
[2017-10-17 05:30] VITALS: BMI 37.2
[2018-07-16 10:32] LABS: PLATELET COUNT, AUTOMATED 185 K/uL (150-450)
== END ==
LOC: LAB 08:09
PROVIDERS: ATTEND Obstetrics & Gynecology
DX: Z34.92 Encounter for supervision of normal pregnancy, unspecified, second trimester (principal)
CPT/HCPCS: 36415; 81001; 82950; 85025; 87088

== ENCOUNTER 2018-08-04 14:25 | Outpatient (CLI) | payer MEDICAID ==
[~2018-08-04] VITALS: Ht 162.6 cm; Wt 96.2 kg
[2018-08-04 14:41] VITALS: BP 115/75; Ht 162.6 cm; Wt 96.2 kg
--- NOTE | 2018-08-04 16:24 | History & Physical ---
History of Present Illness Age of Patient: 27 : 7 Para or TPAL: 3 EDC per U/S: Oct 04, 2018 Estimated Gestational Age: 31 Chief Complaint fatigue History of Present Illness Pt with poor care due to noncompliance, otherwise healthy here with c/o fatigue. History Patient's Blood Type: O Positive Rubella Status: Non-Immune Allergies: Coded Allergies: No Known Drug Allergies (Unverified , 08/20/17) Social History: Denies current smoking or alcohol. Denies drug use. Family History: Patient reports no known family medical history. Med Rec Home Meds No Active Prescriptions or Reported Meds Review of Systems Constitutional: Weight Gain; No Fever, No Weight Loss, No Chills, No Night Sweats Neurological: No Syncope, No Confusion Eyes: No Vision Change ENT: No Hearing Loss Cardiovascular: No Chest Pain Respiratory: No Shortness of Breath, No Cough Gastrointestinal: No Nausea, No Vomiting, No Diarrhea, No Constipation Genitourinary: No Dysuria Musculoskeletal: No Pain Psychiatric: No Depression, No Anxiety Other Pt reports non specific fatigue and feeling tired all the time. She has good FM, no LOF, no Ctx and no VB. Exam General Exam General Apperance: Alert/Awake/No Acute Distress Neuro: No Gross deficits Eyes: Normal Extraocular Movement & Vison ENT: Other (mucous membranes appear dry ) Abdomen: Gravid - Non-Tender : Normal Psychological: Alert & Oriented X3, Appropriate Mood & Affect Fetus Heart Tones: 130 FHT Accelerations: Present, 10X10 FHT Decelerations: None FHT Category: I Medical Decision Making Pre-Admit Course Medical Record Review: Yes Assessment and Plan TAKE AWAY MAN Assessment: Stable (IUP at weeks, pt reassured appears healthy. ) TAKE AWAY MAN Plan: Discharge Home Today Problems: (1) Fatigue during in third trimester Assessment & Plan: Labs reviewed from office, no anemia. Pt counseled on appropriate hydration and PO intake. Pt was able to tolerate a sandwhich and drank a liter of fluid. Stable for d/c to home. RTO as scheduled. KELLE GALEANO DO August 04, 2018 16:24
== END 2018-08-04 17:30 | disposition home or self-care (01) ==
LOC: OB 14:25 → UNDOADMIN 14:25 → L&D 14:25 → OB 15:39 → L&D 17:30 → UNDODISIN 17:30 → EDSTATUS 08-08 11:11
PROVIDERS: ATTEND Obstetrics & Gynecology
DX: O26.813 Pregnancy related exhaustion and fatigue, third trimester (principal); Z3A.31 31 weeks gestation of pregnancy
CPT/HCPCS: 59025; 81001; G0463; 99213

== ENCOUNTER → 2018-09-04 | Outpatient (CLI) | payer MEDICAID ==
[2018-08-04 14:41] VITALS: BMI 36.4
== END ==
LOC: LAB 12:06
PROVIDERS: ATTEND Advanced Practice Midwife
DX: Z36.85 Encounter for antenatal screening for Streptococcus B (principal)
CPT/HCPCS: 87081

== ENCOUNTER 2018-09-28 05:31 | Inpatient (IN) | payer MEDICAID ==
[~2018-09-28] VITALS: Ht 162.6 cm; Wt 98.4 kg
[~2018-09-28 05:31] MED LIST changes: +SERT-1 PO
[2018-09-28] MEDS ORDERED: OXYTOCIN 30 UNIT/NS 500 ML 500 ML IV PRN ×4 (05:33→08:42)
[2018-09-28] MEDS ORDERED: ceFAZolin(*) 2GM/D5W 50ML 50 ML IVPB PRN (05:33)
[2018-09-28] MEDS ORDERED: FAMOTIDINE(*) 20MG/50ML PREMIX 50 ML IVPB PRN (05:33)
[2018-09-28] MEDS ORDERED: METOCLOPRAMIDE 10 MG/2 ML SDV IVP PRN (05:35)
[2018-09-28] MEDS ORDERED: TERBUTALINE SULF 1 MG/ML VIAL SUBQ PRN (05:35)
[2018-09-28 05:40] VITALS: BP 111/76; Ht 162.6 cm; Wt 98.4 kg
[2018-09-28] MEDS: LR(*) 1000 ML BAG 1,000 ML IV PRN ×2 (06:19→10:17)
[2018-09-28] MEDS ORDERED: ONDANSETRON 4 MG/2 ML VIAL IVP PRN (06:30)
[2018-09-28] MEDS ORDERED: ACETAMINOPHEN 500 MG TAB PO PRN (06:30)
[2018-09-28 06:40] VITALS: BP 111/76
[2018-09-28 06:44] LABS: PLATELET COUNT, AUTOMATED 161 K/uL (150-450)
--- NOTE | 2018-09-28 08:18 | History & Physical ---
History of Present Illness Age of Patient: 28 : 7 Para or TPAL: 3033 EDC per LMP: Oct 04, 2018 Estimated Gestational Age: 39.1 Chief Complaint Scheduled IOL History of Present Illness Pt is a 28 y/o @ 39-1/7 wga by 17 week ultrasound who presents to L&D for a scheduled IOL. Denies any contractions. Good movement. No vaginal bleeding. Pt reports that her family all moved back to [place] about 2-3 months ago for work and she has been here waiting for her Job to approve a transfer. Transfer has yet to be approved. She plans to move with in 1 week back to [place] to be with her family. History Patient's Blood Type: O Positive Rubella Status: Equivocal Group B Strep Screen: Negative Obstetrical History: X 3 with last delivery being 09/2017 her at [facility] Allergies: Coded Allergies: No Known Drug Allergies (Unverified , 08/20/17) Social History: Denies current smoking or alcohol. Denies drug use. Family History: Patient reports no known family medical history. Med Rec Home Meds Discontinued Scripts Sertraline Hcl (ZOLOFT) 50 Mg Tablet, 1 TAB PO QDAY, #30 TAB 12 Refills Prov:BALWINDER BULLARD DO 09/11/18 Review of Systems All Systems Reviewed/Normal: Yes, Except as Noted Constitutional: No Fever, No Weight Loss, No Weight Gain, No Chills, No Night Sweats, No Other Neurological: No Syncope, No Confusion, No Weakness, No Dizziness, No Slurred Speech, No Other Eyes: No Vision Change, No Loss of Vision, No Photophobia, No Other ENT: No Hearing Loss, No Sinus Congestion, No Sore Throat, No Ear Ache, No Tinnitus, No Other Cardiovascular: No Chest Pain, No Palpitations, No Orthostatic Hypotension, No Other Respiratory: No Shortness of Breath, No Cough, No Wheezing, No Other Gastrointestinal: No Nausea, No Vomiting, No Diarrhea, No Dysphagia, No Constipation, No Early Satiety, No Hematemesis, No Hematochezia, No Melena, No Abdominal Pain, No Other Genitourinary: No Dysuria, No Hematuria, No Urinary Incontinence, No Other Musculoskeletal: No Pain, No Sprain, No Strain, No Impaired Mobility, No Other Psychiatric: No Depression, No Anxiety, No Other Exam General Exam Vital Signs Vital Signs Date Time Temp Pulse Resp B/P (MAP) Pulse Ox O2 Delivery O2 Flow Rate FiO2 09/28/18 06:40 97.5 102 17 111/76 (88) 17 Room Air General Apperance: Alert/Awake/No Acute Distress Neuro: No Gross deficits Eyes: Normal Extraocular Movement & Vison ENT: Normal Cardiovascular: Regular Rate and Rhythm Respiratory: No Respiratory Distress, Clear to Auscultation Abdomen: Soft, Non-Tender, Non-Distended, Gravid - Non-Tender : Normal Musculoskeletal: No Weakness/Pain Extremities: No Cyanosis,Clubbing or Edema Integumentary: Skin Intact without Lesions or Rash Psychological: Alert & Oriented X3, Appropriate Mood & Affect Cervical Dialation: 2.5 Cervical Effacement (%): 50 Cervical Consistency: Soft Cervical Position: Posterior Station: -2 Presentation: Vertex Uterine Contraction Strength: Mild Fetus Feeling Movement?: Yes Heart Tones: 125 Heart Tone Variabilty: Moderate FHT Accelerations: 15X15 FHT Decelerations: None FHT Category: I Medical Decision Making Data Points Result Diagram: 09/28/18 0634 Pre-Admit Course Medical Record Review: Yes VTE Prophylasis: Adult Deep Vein Thrombosis/Pulmonary: No 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 Will plan for amniotomy and expect . (3) Depression *Optional Permanent Comment*: On Zoloft 50 mg PO daily. Last Edited By: Balwinder Bullard on Sep 28, 2018 08:18 BALWINDER BULLARD DO Sep 28, 2018 08:18
[2018-09-28] MEDS ORDERED: DLR(*) 1000 ML BAG 1,000 ML IV SCH (08:43)
--- NOTE | 2018-09-28 09:02 | Labor Progress Note ---
Labor Subjective Progress Notes Subjective Assuming care of this elective induction patient. Ms. Joseph reports that she feels overall well. Denies WARD, RUQ pain, nausea/emesis. She is on pitocin, and feeling contractions, rates them 5/10. She denies LOF, PVB, reports movement. She has no other concerns. Feeling Movement?: Yes Vaginal Discharge/Fluid: No Bloody Show, No Clear Fluid, No Bloody Fluid, No Green Tinged Fluid, No Dark Green Fluid, No Mucous, No Small Amount, No Moderate Amount, No Large Amount, No Other Labor Pain: Mild Neurological: No Headache, No Other Eyes: No Visual Disturbances Labor Objective Vital Signs Vital Signs Date Time Temp Pulse Resp B/P (MAP) Pulse Ox O2 Delivery O2 Flow Rate FiO2 09/28/18 06:40 97.5 102 17 111/76 (88) 17 Room Air Vaginal Discharge/Fluid?: Other (none) Cervical Dialation: 2 Cervical Effacement (%): 50 Cervical Consistency: Soft Cervical Position: Mid Station: -2 Presentation: Vertex (confirmed by ultrasound at admission) Uterine Contractions(Q min): 7 Uterine Contraction Strength: Moderate UC Resting Tone: Soft Fetus Estimated Weight(grams): 3600 Heart Tones: 130 Heart Tone Variabilty: Moderate FHT Accelerations: 15X15 FHT Decelerations: None FHT Category: I General Exam General Appearance: Alert/Awake/No Acute Distress ENT: Normal Cardiovascular: Regular Rate and Rhythm Respiratory: No Respiratory Distress, Clear to Auscultation Abdomen: Soft, Non-Tender, Non-Distended Extremities: No Cyanosis,Clubbing or Edema Integumentary: Skin Intact without Lesions or Rash Psychological: Alert & Oriented X3, Appropriate Mood & Affect Other Result Diagram: 09/28/18 0634 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 GBS negative. status reassuring. EFW 3600 with adequate pelvis. -continue pitocin as tolerated -AROM with good contraction pattern -cefm/toco -epidural when desired -anticipate (2) Rubella non-immune status, antepartum Status: Acute Assessment & Plan: rubella equivocal -post- vaccination planned DONNA TAYLOR MD Sep 28, 2018 09:02
[2018-09-28] MEDS ORDERED: NALOXONE HCL 0.4 MG/ML VIAL IV PRN (09:40)
[2018-09-28] MEDS ORDERED: LIDO/EPI 2% MPF 1:200,000 20ML EPI PRN (09:40)
[2018-09-28] MEDS ORDERED: FENTANYL/ROPIVACAINE 100 ML BAG EPI PRN (09:40)
[2018-09-28] MEDS ORDERED: LIDOCAINE/PF 2% 200MG/10ML AMP 200 MG/10 ML AMPUL EPI PRN (09:40)
[2018-09-28] MEDS ORDERED: NALBUPHINE HCL 10 MG/ML AMP IVP PRN (09:40)
[2018-09-28] MEDS ORDERED: BUPIVACAINE 0.25% MPF INJ EPI PRN (09:40)
--- NOTE | 2018-09-28 09:42 | Labor Progress Note ---
Labor Subjective Progress Notes Subjective Ms. Joseph reports that she is feeling overall well. Uncomfortable with contractions -- 7/10 pain. No LOF, no PVB. Good movement. Denies WARD, vision changes, RUQ pain, N/V. Feeling Movement?: Yes Vaginal Discharge/Fluid: Clear Fluid Labor Pain: Moderate Neurological: No Headache, No Other Eyes: No Visual Disturbances Labor Objective Vital Signs Vital Signs Date Time Temp Pulse Resp B/P (MAP) Pulse Ox O2 Delivery O2 Flow Rate FiO2 09/28/18 06:40 97.5 102 17 111/76 (88) 17 Room Air Vaginal Discharge/Fluid?: Clear Fluid (AROM) Cervical Dialation: 3 Cervical Effacement (%): 50 Cervical Consistency: Soft Cervical Position: Mid Station: -2 Presentation: Vertex Uterine Contractions(Q min): 4 Uterine Contraction Strength: Moderate UC Resting Tone: Soft Fetus Estimated Weight(grams): 3600 Heart Tones: 135 Heart Tone Variabilty: Moderate FHT Accelerations: 15X15 FHT Decelerations: None FHT Category: I General Exam General Appearance: Alert/Awake/No Acute Distress Extremities: No Cyanosis,Clubbing or Edema Integumentary: Skin Intact without Lesions or Rash Psychological: Alert & Oriented X3, Appropriate Mood & Affect Other Result Diagram: 09/28/18 0634 Assessment and Plan Problems: (1) Elective induction of labor planned Status: Acute Assessment & Plan: 28yo at 39.1 undergoing elective induction at term. GBS negative. status reassuring. EFW 3600 with adequate pelvis. -continue pitocin as tolerated -AROM'd this exam -cefm/toco -epidural when desired -anticipate (2) Rubella non-immune status, antepartum Status: Acute Assessment & Plan: rubella equivocal -post- vaccination planned DONNA TAYLOR MD Sep 28, 2018 09:42
--- NOTE | 2018-09-28 11:11 | Anesthesia OB Pre-Anes Eval ---
History of Present Illness Anesthesia Start Date: Sep 28, 2018 Anesthesia Start Time: 09:57 OB Anesthesia Diagnosis: induction - elective EDC: Oct 04, 2018 : 7 Para: 3 Vital Signs: WNL, Sys - 110 Pain Ratin Heart Tones: 127 Result Diagram: 09/28/18 0634 Height (Inches): 64.00 Weight (Pounds): 217 Plt 161 Past Medical History Medical History: no pertinent history, other (depression) Previous Anesthesia: epidural Attended Childbirth Classes?: No Hx Anesthesia Reactions: No Hx Family Anesthesia Reaction: No Current Medications: pitocin Home Meds Discontinued Scripts Sertraline Hcl (ZOLOFT) 50 Mg Tablet, 1 TAB PO QDAY, #30 TAB 12 Refills Prov:BALWINDER BULLARD DO 09/11/18 Allergies: Coded Allergies: No Known Drug Allergies (Unverified , 08/20/17) Anesthesia OB ROS Neurological: other (depression); No migraines/headaches, No seizures, No neuropathy ENT: Denies Tooth caps, Denies Loose teeth, Denies Chipped teeth, Denies Dentures, Denies Bridges, Denies Retainers, Denies Veneers, Denies Implants, Denies Tongue ring, Denies Other Pulmonary: No asthma, No smoker (pks/day/yrs), No other Airway Class: lll Cardiovascular ROS: No edema, No arrhythmia, No other Last Solids Date: Sep 27, 2018 Last Solids Time: 18:30 ROS: No Herpes, No STD(s), No Liver Disease, No Renal Disease, No Other Endocrine ROS: No diabetes, No gestational diabetes, No thyroid disorder, No other Musculoskeletal ROS: scoliosis (slight rotation in lumbar region noted with first epidural attempt and US scanning) ASA Classification: 2 Assessment and Plan Anesthesia Plan: CSE (with LEB) Assessment: 1022 - I attempted to place epidural and pt stated she could not hold still and it was not pain only a lot of pressure, that it was a "reaction I can't control", then pt moved considerably and I had to remove needle. Pt encouraged that she had to hold still as I would have a needle in her back. I then started again and pt kept leaning to her left and moving her lower back over to the right. I then reached a point where pt stated she had pain on the right and I repositioned needle 3 times and she still complained of pain and was becoming more anxious and moving more so I removed needle. I talked with pt about her anxiety and about us realizing she does not have any support here to help her and that we are here to help her. Pt up to bathroom and when she returned I asked pt if I could ultrasound her back and make sure I was on center with my needle insertion. According to ultrasound I was on center of spine but it did appear that she had some slight rotation of spine. I made payne on her back where the ultrasound showed I should attempt if the pt determined she would like me to try again. Assessment Past Medical, Surgical, Family and Obstetric Histories reviewed. Please see ACOG chart. Epidural anesthesia risks, complications and benefits explained to patient's satisfaction for labor and vaginal delivery and/or section Risk Sheet read by pt.Past Medical, Surgical, Family and Obstetric Histories reviewed. [place] [facility]. Anesthesia Stop Day: Sep 28, 2018 Anesthesia Stop Time: 17:51 Epidural Catheter Removal: Yes, Removed by: (Aleida Ponce CRNA) Removal Date: Sep 28, 2018 Removal Time: 17:51 Condition Pt very happy with pain control during labor after epidural placed. Smooth delivery. Vital signs stable. Patient comfortable and condition stable. Patient instructed the first ambulation is to be with help of nursing staff. Instructed to preform deep knee bends at bedside before walking. ALYSIA PONCE CRNA Sep 28, 2018 10:05
[2018-09-28] MEDS: fentaNYL CITR 100 MCG/2 ML AMP ONE ×2 (12:00→19:20)
[2018-09-28] MEDS ORDERED: fentaNYL CITR 100 MCG/2 ML AMP IVP PRN (12:05)
--- NOTE | 2018-09-28 12:24 | Labor Progress Note ---
Labor Subjective Progress Notes Subjective Patient reports that she is still feeling contraction pain, moderate. Willing to try epidural again; concerned that she may have difficulty holding still because she has pain on the right side on her back. No N/V, no RUQ pain, no vision changes. Good movement. +LOF. Feeling Movement?: Yes Vaginal Discharge/Fluid: Clear Fluid Labor Pain: Moderate Neurological: No Headache, No Other Eyes: No Visual Disturbances Labor Objective Vital Signs Vital Signs Date Time Temp Pulse Resp B/P (MAP) Pulse Ox O2 Delivery O2 Flow Rate FiO2 09/28/18 06:40 97.5 102 17 111/76 (88) 17 Room Air Vaginal Discharge/Fluid?: Clear Fluid Cervical Dialation: 4.5 Cervical Effacement (%): 60 Cervical Consistency: Soft Cervical Position: Mid Station: -2 Presentation: Vertex Uterine Contractions(Q min): 4 Uterine Contraction Strength: Moderate UC Resting Tone: Soft Fetus Estimated Weight(grams): 3600 Heart Tones: 130 Heart Tone Variabilty: Moderate FHT Accelerations: 15X15 FHT Decelerations: None FHT Category: I General Exam General Appearance: Alert/Awake/No Acute Distress Integumentary: Skin Intact without Lesions or Rash Psychological: Alert & Oriented X3, Appropriate Mood & Affect Other Result Diagram: 09/28/18 0634 Assessment and Plan Problems: (1) Elective induction of labor planned Status: Acute Assessment & Plan: 28yo at 39.1 undergoing elective induction at term. GBS negative. status reassuring. EFW 3600 with adequate pelvis. -continue pitocin as tolerated -AROM'd -cefm/toco -fentanyl for pain relief, then re-try epidural -anticipate (2) Rubella non-immune status, antepartum Status: Acute Assessment & Plan: rubella equivocal -post- vaccination planned DONNA TAYLOR MD Sep 28, 2018 12:24
--- NOTE | 2018-09-28 13:22 | Procedure Note ---
Anesthetic Placement Note Anesthesia Plan: CSE (with LEB) Permit for Anesthesia Signed: Yes Anesthesia Technique: Patient Sitting Anesthesia Prep: Chlorhexidine Interspace: L 3-4 Local Anesthetic: 1% Lidocaine, 25 Gauge Needle Amount Local - cc's: 5 Anesthesia Needle: 17g Touhy/Schliff (27ga pencan IT needle) Anesthesia Attempts: 2 Loss of Resistance: Normal Saline Depth of AMARI (cm): 7 Epidural Needle Placement: No CSF, No Blood, No Parasthesia Intrathecal Needle: 27 Gauge Pencan Cerebral Spinal Fluid: Yes, Clear Catheter Insertion (cm): 12 Catheter Type: Clay - Spring Wound Epidural Dressing: Tegaderm, Tape Anesthesia Tray: Lot Number ([id number]), Expiration Date (11-25-2019) Comment: See Preop note for first attempt info. Pt agreed to second attempt at epidural after she had some fentanyl and felt less pain and more relaxed. Dr. Tolliver at bedside also. Used location indicated by US marked prior. Pt still complained of a right sided pain in back then a le ft sided pain, then I was able to find epidural space at 7cm. Pt tolerated procedure well and was questioning why there was more difficulty in placing this compared to last time and we explained to her that her body is always changing and that the slight rotation of her lumbar spine can happen at any time in life. Pt reassured after epidural placed. Pt having more numbness in left vs right. Pt happy with care at this time and looking more relaxed and smiling more.Vital signs stable. Patient comfortable and condition stable. Anesthesia Medications: Intrathecal Dose: mg Marcaine MPF (2.5mg), Time (1253) Epidural Test Dose: 1.5 Lido/Epi (1:200,000), Dose - mL (3), Time (1255), Negative Epidural Loading Dose: 0.2% Ropivicaine, With Fentanyl 2mcg/ml, Dose - ml (5), Time (1302) Epidural Infusion: 0.2% Ropivicaine, With Fentanyl 2mcg/ml, Start Time: (1302) Epidural Pump Setting: Bolus Dose - mL (3), Lockout - Minutes (30), Maintenance Rate - mL/hr (7), Maximum per Hour - mL (13) Complications: None ALYSIA DAY CRNA Sep 28, 2018 13:22
--- NOTE | 2018-09-28 15:00 | Labor Progress Note ---
Labor Subjective Progress Notes Subjective Ms. Joseph reports that she is feeling comfortable with her epidural. Feels some pressure at the perineum. No N/V, no RUQ pain, no vision changes, no headache. Feeling Movement?: Yes Vaginal Discharge/Fluid: Clear Fluid Labor Pain: Comfortable Neurological: No Headache, No Other Eyes: No Visual Disturbances Labor Objective Vital Signs Vital Signs Date Time Temp Pulse Resp B/P (MAP) Pulse Ox O2 Delivery O2 Flow Rate FiO2 09/28/18 06:40 97.5 102 17 111/76 (88) 17 Room Air Vaginal Discharge/Fluid?: Clear Fluid Cervical Dialation: 5 Cervical Effacement (%): 60 Cervical Consistency: Soft Cervical Position: Anterior Station: -2 Presentation: Vertex Uterine Contractions(Q min): 3 Uterine Contraction Strength: Moderate UC Resting Tone: Soft Fetus Estimated Weight(grams): 3600 Heart Tones: 140 Heart Tone Variabilty: Moderate FHT Accelerations: 15X15 FHT Decelerations: Early FHT Category: I General Exam General Appearance: Alert/Awake/No Acute Distress Extremities: No Cyanosis,Clubbing or Edema Integumentary: Skin Intact without Lesions or Rash Psychological: Alert & Oriented X3, Appropriate Mood & Affect Other Result Diagram: 09/28/18 0634 Assessment and Plan Problems: (1) Elective induction of labor planned Status: Acute Assessment & Plan: 28yo at 39.1 undergoing elective induction at term. GBS negative. status reassuring. EFW 3600 with adequate pelvis. Comfortable with epidural. -continue pitocin as tolerated -IUPC placed now, due to difficulty with toco monitoring -cefm -epidural working well -anticipate (2) Rubella non-immune status, antepartum Status: Acute Assessment & Plan: rubella equivocal -post- vaccination planned DONNA TAYLOR MD Sep 28, 2018 15:00
--- NOTE | 2018-09-28 17:12 | Labor Progress Note ---
Labor Subjective Progress Notes Subjective Ms. Joseph reports that she is comfortable with contractions. Starting to feel them a bit on the right side, but manageable. Also feeling some pressure in the perineum. No WARD, vision changes, RUQ pain or N/V. Feeling Movement?: Yes Vaginal Discharge/Fluid: Bloody Show Labor Pain: Mild Neurological: No Headache, No Other Labor Objective Vital Signs Vital Signs Date Time Temp Pulse Resp B/P (MAP) Pulse Ox O2 Delivery O2 Flow Rate FiO2 09/28/18 06:40 97.5 102 17 111/76 (88) 17 Room Air Vaginal Discharge/Fluid?: Bloody Show Cervical Dialation: 8 Cervical Effacement (%): 90 Cervical Consistency: Soft Cervical Position: Anterior Station: -1 Presentation: Vertex Uterine Contractions(Q min): 3 ([place] 140) Uterine Contraction Strength: Mild UC Resting Tone: Soft Fetus Estimated Weight(grams): 3600 Heart Tones: 130 Heart Tone Variabilty: Moderate FHT Accelerations: Present FHT Decelerations: Early FHT Category: II General Exam General Appearance: Alert/Awake/No Acute Distress Extremities: No Cyanosis,Clubbing or Edema Integumentary: Skin Intact without Lesions or Rash Psychological: Alert & Oriented X3, Appropriate Mood & Affect Other Result Diagram: 09/28/18 0634 Assessment and Plan Problems: (1) Elective induction of labor planned Status: Acute Assessment & Plan: 28yo at 39.1 undergoing elective induction at term. GBS negative. status reassuring. EFW 3600 with adequate pelvis. Co mfortable with epidural. -continue pitocin as tolerated -cefm -epidural working well -anticipate (2) Rubella non-immune status, antepartum Status: Acute Assessment & Plan: rubella equivocal -post- vaccination planned DONNA TAYLOR MD Sep 28, 2018 17:12
[2018-09-28] MEDS ORDERED: ACETAMINOPHEN 325 MG TAB PO PRN (17:50)
[2018-09-28] MEDS ORDERED: BENZOCAINE 20% 60 ML BTL TP PRN (17:50)
[2018-09-28] MEDS ORDERED: GLYCERIN/WITCH HAZEL LEAF 1 PK TP PRN (17:50)
[2018-09-28] MEDS ORDERED: HYDROCORTISONE 2.5% CR 30GM TB PR PRN (17:50)
[2018-09-28] MEDS ORDERED: INFLUENZA VIRUS VAC 0.5ML SYR IM ONLY ONE (17:50)
[2018-09-28] MEDS ORDERED: MAGNESIUM HYDROXIDE* 30ML UDCP PO PRN (17:50)
[2018-09-28] MEDS ORDERED: LANOLIN OINT 7 GM TUBE TP PRN (17:50)
--- NOTE | 2018-09-28 17:57 | OB Delivery Note ---
Delivery Note Vaginal Delivery Type: Spont. Vaginal Delivery Delivery Date: Sep 28, 2018 Delivery Time: 17:37 Estimated Gestational Age(wks): 39.1 Length of Labor Stage I (hrs): 8 Length of Labor Stage II (hrs): 0.1 Labor Stage III (minutes): 4 Delivery Anesthesia: Epidural Infant Sex: Female Weight (gms): 3040 [place] Apgars: 1 Minute (8), 5 Minute (9) Repair Needed: Other (none) Estimated Blood Loss: 300 Delivery Complications: Nuchal Cord (reduced at perineum) Notes: Ms. Joseph was admitted for elective induction at 05:37am. status was reassuring and vertex presentation was confirmed by ultrasound. Pt was at 2cm/50% effaced on admission. Started on pitocin. Underwent AROM at 09:34. Received epidural for pain relief. Progressed to fully dilated at 17:32. She delivered a vigorous term female at 17:37 over an intact perineum. A nuchal cord was noted and reduced at the perineum. The shoulders and body were delivered without difficulty. The 's nares and mouth were suctioned with the bulb syringe and she was handed to her mother. After pulsations ceased the cord was doubly clamped and cut and a portion of cord blood was obtained for the nurses. The placenta delivered spontaneously and intact and the uterus contracted well with pitocin and massage. The vulva, vagina, and perineum were examined and no lacerations were noted. The infant's apgars were 8 and 9. Hydro Plant Technician in Attendence: DONNA Anand MD Sep 28, 2018 17:57
--- NOTE | 2018-09-28 18:06 | Anesthesia Post Eval Note ---
Anesthesia Post Eval Note VS WNL. Pt moving legs some but still far from getting out of bed. Left side den ser than right throughout epidural. 09/29/18 1005 - Pt VSS and doing well. Pt able to participate in Eval: Yes Cardiovascular Status: Satisfactory Respiratory Status: Satisfactory Pain Managment: Satisfactory PO Nausea/Vomiting: Satisfactory Temperature Management: Satisfactory Mental Status: Satisfactory Post-Op Hydration Status: Satisfactory Anesthesia Type: CSE Anesthesia Tolerance: Tolerated procedure well without apparent anesthetic complications. LP site clear, no redness or edema. Denies headache or any residual paresthesia. Vital Signs Stable, Patient comfortable and condition stable. 09/29/18 - 1005 - Pt sitting up in bed and doing well. Complaining of some pain around insertion site, some swelling/bruising noted over pts left side of insertion but not on right. Pt states pain is slightly stabbing when she moves her back. Pt denies any pain or numbness or complaints when up and walking. Encouraged pt that the swelling and bruising would go away and that was due to hitting a vessel during my first attempt. VSS, baby looks good! ALYSIA DAY CRNA Sep 28, 2018 18:06
[2018-09-28] MEDS: IBUPROFEN 800 MG TAB PO SCH (18:32)
[2018-09-28 19:15] VITALS: BP 120/76
[2018-09-28 20:04] VITALS: BP 127/69
[2018-09-28] MEDS: DOCUSATE CALCIUM 240 MG CAP PO SCH (21:06)
[2018-09-28 21:10] VITALS: BP 103/61
[2018-09-28] MEDS: oxyCODON/ACET (*)5/325MG (CII) 1 TAB TAB PO PRN (22:13)
[2018-09-28 23:20] VITALS: BP 92/54
[2018-09-29 03:15] VITALS: BP 106/69
[2018-09-29] MEDS: IBUPROFEN 800 MG TAB PO SCH ×3 (03:26→19:21)
[2018-09-29] MEDS: oxyCODON/ACET (*)5/325MG (CII) 1 TAB TAB PO PRN ×3 (04:27→20:39)
[2018-09-29] MEDS: DOCUSATE CALCIUM 240 MG CAP PO SCH ×2 (08:51→20:39)
[2018-09-29 08:55] VITALS: BP 107/65
[2018-09-29] MEDS: HYDROmorphone HCL 2 MG TAB PO PRN ×2 (09:42→17:51)
--- NOTE | 2018-09-29 10:18 | OB/GYN Progress Note ---
OB Subjective Progress Notes Subjective Ms. Joseph reports overall feeling well this am. She reports that she is having uterine cramping and pain at her epidural site -- both of which are requiring motrin and percocet. She is walking without difficulty, no subjective or objective weakness. She is also voiding urine without difficulty and passing flatus. She reports that her pain is similar to her last delivery. She denies fevers/chills, denies CP or SOB. She denies symptoms of post- depression. She is bottle feeding. GI: POS Flatus : Voiding Well, Vaginal Bleeding, Moderate Pain: Moderate, Tolerating PO Pain Meds, Using IV Pain Meds Neurological: No Headache, No Other Eyes: No Visual Disturbances OB Objective Physical Exam Vital Signs Date Time Temp Pulse Resp B/P (MAP) Pulse Ox O2 Delivery O2 Flow Rate FiO2 09/29/18 08:55 98.0 77 18 107/65 (79) 95 Room Air Intake and Output 09/29/18 07:02 Intake Total 3530 ml Output Total 900 ml Balance 2630 ml Intake Oral 600 ml IV Total 2930 ml Output Urine Total 900 ml # Voids 4 General Appearance: Alert/Awake/No Acute Distress Neurological: No Gross deficits Eyes: Normal Extraocular Movement & Vison ENT: Normal Cardiovascular: Regular Rate and Rhythm Respiratory: No Respiratory Distress, Clear to Auscultation Abdomen: Soft, Non-Tender, Non-Distended, Bowel Sounds Present, Fundus Firm, Non-Tender Musculoskeletal: No Weakness/Pain Extremities: No Cyanosis,Clubbing or Edema Integumentary: Skin Intact without Lesions or Rash Psychological: Alert & Oriented X3, Appropriate Mood & Affect Result Diagram: 09/29/18 0606 Assessment and Plan [employer] Assessment: Stable [employer] Plan: Routine Post- Care Problems: (1) Elective induction of labor planned Status: Resolved (2) Rubella non-immune status, antepartum Status: Acute Assessment & Plan: rubella equivocal -post- vaccination prior to discharge (3) care and examination immediately after delivery Status: Acute Assessment & Plan: 28yo PPD 1 s/p , overall doing well. Patient [place] ving cramping pain and low-back pain at epidural site. No concerns for endometritis, infection or other injury. -routine pp care -anticipate in DONNA Recinos MD Sep 29, 2018 10:18
[2018-09-29] MEDS ORDERED: IBUP800T37 PO (10:22)
[2018-09-29] MEDS ORDERED: PER PO (10:22)
[2018-09-29 12:34] VITALS: BP 118/69
[2018-09-29 16:05] VITALS: BP 109/72
[2018-09-29 19:45] VITALS: BP 106/59
[2018-09-29 23:15] VITALS: BP 115/75
[2018-09-30] MEDS: oxyCODON/ACET (*)5/325MG (CII) 1 TAB TAB PO PRN ×3 (03:12→15:45)
[2018-09-30 05:45] VITALS: BP 104/62
[2018-09-30] MEDS: IBUPROFEN 800 MG TAB PO SCH ×2 (05:52→13:35)
[2018-09-30 07:33] VITALS: BP 114/64
--- NOTE | 2018-09-30 08:56 | OB/GYN Progress Note ---
OB Subjective Progress Notes Subjective Ms. Joseph reports that she is still having lower abdominal cramping, relieved with motrin and percocet. She states that her bleeding is minimal. Walking and voiding without difficulty. Reports that mood is good. Bottle feeding. Ms. Joseph's family has moved to [facility] and she is looking forward to reuniting with them. She reports that she is feeling support from them. GI: POS Flatus; NEG Nausea, NEG Vomiting, NEG Bowel Movement : Voiding Well, Vaginal Bleeding, Scant Pain: Moderate, Tolerating PO Pain Meds Neurological: No Headache, No Other Eyes: No Visual Disturbances OB Objective Physical Exam Vital Signs Date Time Temp Pulse Resp B/P (MAP) Pulse Ox O2 Delivery O2 Flow Rate FiO2 09/30/18 07:33 97.5 67 16 114/64 (81) 96 Room Air Intake and Output 09/30/18 07:02 Intake Total 2700 ml Output Total 825 ml Balance 1875 ml Intake Oral 2700 ml Output Urine Total 825 ml # Voids 5 General Appearance: Alert/Awake/No Acute Distress Neurological: No Gross deficits Eyes: Normal Extraocular Movement & Vison ENT: Normal Cardiovascular: Regular Rate and Rhythm Respiratory: No Respiratory Distress, Clear to Auscultation Abdomen: Soft, Non-Tender, Non-Distended, Bowel Sounds Present, Fundus Firm, Non-Tender Musculoskeletal: No Weakness/Pain Extremities: No Cyanosis,Clubbing or Edema Integumentary: Skin Intact without Lesions or Rash Psychological: Alert & Oriented X3, Appropriate Mood & Affect Result Diagram: 09/29/18 0606 Assessment and Plan Problems: (1) Elective induction of labor planned Status: Resolved (2) Rubella non-immune status, antepartum Status: Acute Assessment & Plan: rubella equivocal -post- vaccination prior to discharge (3) care and examination immediately after delivery Status: Acute Assessment & Plan: 28yo PPD 2 s/p , overall doing well. Patient doing well. Voiding and ambulating without difficulty. Tolerating regular diet and PO pain medication. No ss/sx of labor. Reviewed routine discharge education. Plan for discharge home today after MMR administration. DONNA TAYLOR MD Sep 30, 2018 08:56
--- NOTE | 2018-09-30 08:57 | OB/GYN Discharge Summary ---
Discharge Summary Reason for Hosp/Final Diag: (1) Elective induction of labor planned Status: Resolved (2) Rubella non-immune status, antepartum Status: Acute Hospital Course & Plan: rubella equivocal -post- vaccination prior to discharge (3) care and examination immediately after delivery Status: Acute Hospital Course & Plan: 28yo PPD 2 s/p , overall doing well. Patient doing well. Voiding and ambulating without difficulty. Tolerating regular diet and PO pain medication. No ss/sx of labor. Reviewed routine discharge education. Plan for discharge home today after MMR a dministration. [place] Vital Signs Vital Signs Date Time Temp Pulse Resp B/P (MAP) Pulse Ox O2 Delivery O2 Flow Rate FiO2 09/30/18 07:33 97.5 67 16 114/64 (81) 96 Room Air Weight (Pounds): 217 Result Diagram: 09/29/18605 Condition: Improved Discharge: Self Detention Meds Active Scripts Oxycodone/Acetaminophen (OXYCODONE/ACETAMINOPHEN 5MG/325 MG) 5 Mg/325 Mg Tab, 2 TAB PO Q6H PRN for PAIN for 7 Days, #60 TAB Prov:DONNA TAYLOR MD 09/29/18 Ibuprofen (IBUPROFEN) 800 Mg Tablet, 800 MG PO Q8H@0300,1100,1900 for 30 Days, #90 TAB 1 Refill Prov:DONNA TAYLOR MD 09/29/18 Discontinued Scripts Sertraline Hcl (ZOLOFT) 50 Mg Tablet, 1 TAB PO QDAY, #30 TAB 12 Refills Prov:BALWINDER BULLARD DO 09/11/18 Follow up with: [facility] [place] [phone] Follow up in: 6 wks PP or PO Discharge Diet: As Tolerates Discharge Activity: Pelvic Rest DONNA TAYLOR MD Sep 30, 2018 08:57
[2018-09-30] MEDS: DOCUSATE CALCIUM 240 MG CAP PO SCH (09:19)
[2018-09-30 11:56] VITALS: BP 118/70
[2018-09-30] MEDS ORDERED: MEASLES,MUMP,RUBELLA VAC 0.5ML SUBQ ONE (17:50)
[2018-09-30] MEDS ORDERED: DIPHTH/TETANUS/ACEL. PERTUSSIS IM ONLY ONE (17:50)
== END 2018-09-30 16:55 | disposition home or self-care (01) | DRG 807 ==
LOC: OB 05:31
PROVIDERS: ADMIT Obstetrics & Gynecology; ATTEND Obstetrics & Gynecology
PROC: 10E0XZZ Delivery of Products of Conception, External Approach (ICD-10-PCS; principal; 2018-09-28)
PROC: 10907ZC Drainage of Amniotic Fluid, Therapeutic from Products of Conception, Via Natural or Artificial Opening (ICD-10-PCS; 2018-09-28)
PROC: 10H07YZ Insertion of Other Device into Products of Conception, Via Natural or Artificial Opening (ICD-10-PCS; 2018-09-28)
PROC: 4A1H74Z Monitoring of Products of Conception, Cardiac Electrical Activity, Via Natural or Artificial Opening (ICD-10-PCS; 2018-09-28)
PROC: 3E033VJ Introduction of Other Hormone into Peripheral Vein, Percutaneous Approach (ICD-10-PCS; 2018-09-28)
DX: O99.344 Other mental disorders complicating childbirth (principal); Z37.0 Single live birth; O69.81X0 Labor and delivery complicated by cord around neck, without compression, not applicable or unspecified; F32.9 Major depressive disorder, single episode, unspecified; Z3A.39 39 weeks gestation of pregnancy; Z23 Encounter for immunization
CPT/HCPCS: 36415; 81001; 85025; 85027; 86850; 86900; 86901; 90471; 90707; J2590; J3010; J7120